=== PATIENT | female | born 1975 | race Caucasian/White ===

== ENCOUNTER 2021-01-22 08:24 | Day surgery (SDC) | payer BC ==
[~2021-01-22 08:24] MED LIST: Lactated Ringers 1,000 ML IV SCH
[2021-01-22] MEDS ORDERED: Lactated Ringers 1,000 ML IV SCH ×2 (09:00→11:00)
[2021-01-22] MEDS ORDERED: Propofol 200 MG/20 ML SDV ONE (09:31)
[2021-01-22] MEDS ORDERED: Bupivacaine 0.5%/EPINEPHrine 1:200,000 30 ML SDV ONE (10:00)
[2021-01-22] MEDS ORDERED: Ketamine 200 MG/20 ML MDV ONE (10:49)
[2021-01-22] MEDS ORDERED: Bupivacaine 0.5%/EPINEPHrine 1:200,000 30 ML SDV INFILT ONE ×2 (11:04)
== END 2021-01-22 12:30 | disposition home or self-care (01) ==
LOC: VM.SDS 08:24
PROVIDERS: ATTEND Student in an Organized Health Care Education/Training Program
DX: D17.0 Benign lipomatous neoplasm of skin and subcutaneous tissue of head, face and neck (principal); E66.9 Obesity, unspecified; R73.9 Hyperglycemia, unspecified; L50.9 Urticaria, unspecified; Z79.899 Other long term (current) drug therapy; Z98.890 Other specified postprocedural states
CPT/HCPCS: 21556; 81025; J2704; J3490; J7120; 00300